=== PATIENT | female | born 1970 | race Two or more races ===

== ENCOUNTER 2023-03-21 09:07 | Emergency (ER) | payer OTHER ==
[~2023-03-21] VITALS: Ht 167.6 cm; Wt 102.5 kg
[2023-03-21] MEDS ORDERED: ELIQUIS2.5 MG PO (09:45)
== END 2023-03-21 14:30 | disposition home or self-care (01) ==
LOC: ER 09:07
DX: M79.605 Pain in left leg (principal); I80.222 Phlebitis and thrombophlebitis of left popliteal vein

== ENCOUNTER 2023-03-24 13:18 | Emergency (ER) | payer OTHER ==
[~2023-03-24] VITALS: Ht 167.6 cm; Wt 101.6 kg
[~2023-03-24 13:18] MED LIST: ELIQUIS2.5 MG PO
== END 2023-03-24 15:35 | disposition home or self-care (01) ==
LOC: ER 13:18
DX: M79.605 Pain in left leg (principal); R06.02 Shortness of breath; R07.89 Other chest pain; R11.10 Vomiting, unspecified

== ENCOUNTER 2023-06-20 11:38 | Emergency (ER) | payer OTHER ==
[~2023-06-20] VITALS: Ht 167.6 cm; Wt 99.8 kg
[2023-06-20] MEDS ORDERED: QBRELIS1 MG/1 ML (12:05)
[2023-06-20] MEDS ORDERED: TAPAZOLE5 MG (12:05)
== END 2023-06-20 14:59 | disposition home or self-care (01) ==
LOC: ER 11:38
DX: M79.604 Pain in right leg (principal); I87.2 Venous insufficiency (chronic) (peripheral); Z91.011 Allergy to milk products

== ENCOUNTER 2024-08-26 08:05 | Emergency (ER) | payer OTHER ==
[~2024-08-26] VITALS: Ht 167.6 cm; Wt 99.8 kg
[~2024-08-26 08:05] MED LIST changes: +QBRELIS1 MG/1 ML; +TAPAZOLE5 MG
[2024-08-26] MEDS ORDERED: RINGERS SOLUTION,LACTATED 1,000 ML IV STA (09:16)
[2024-08-26] MEDS ORDERED: ONDANSETRON HCL 2 MG/ML VIAL IV STA (09:17)
[2024-08-26] MEDS ORDERED: FAMOtidine 10 MG/ML (4ML VIAL) IV STA (09:18)
[2024-08-26] MEDS ORDERED: METOCLOPRAMIDE HCL 10 MG in DEXTROSE 5 % IN WATER 50 ML IV ONE (09:30)
[2024-08-26 10:07] LABS: HEMATOCRIT 39.2 % (36.0-45.00); MEAN CELL VOLUME 86.3 fL (80.00-100.00); MEAN CORPUSCULAR HEMOGLOBIN 28.7 pg (27.00-32.0); MEAN CORPUSCULAR HGB CONC 33.3 g/dl (32.0-36.0); RED BLOOD COUNT 4.54 M/uL (4.00-6.00); RED CELL DISTRIBUTION WIDTH 12.8 % (11.5-14.5)
[2024-08-26 10:08] LABS: PLATELET COUNT 126 K/uL (150-450)
[2024-08-26 10:29] LABS: ALBUMIN 3.8 gm/dL (3.4-5.0); BILIRUBIN TOTAL 0.89 mg/dL (0.3-1.2); BILIRUBIN,CONJUGATED 0.19 mg/dL (0.0-0.2); BILIRUBIN,UNCONJUGATED 0.7 mg/dL (0.0-0.6); CALCIUM 9.5 mg/dL (8.5-10.1); CREATININE SERUM 0.65 mg/dL (0.55-1.02); GFR 95.35; POTASSIUM 4.43 mEq/L (3.5-5.1); TOTAL PROTEIN 7.8 gm/dL (6.4-8.2)
[2024-08-26 11:11] LABS: PH,URINE 6.5 (5.0-8.0); URINE APPEARANCE Clear; URINE BILIRRUBIN Negative (NEGATIVE); URINE BLOOD Negative; URINE COLOR Yellow; URINE GLUCOSE Negative (NEGATIVE); URINE KETONE Trace (NEGATIVE); URINE LEUKOCYTE Negative; URINE NITRATE Negative; URINE PROTEIN Negative (NEGATIVE)
[2024-08-26 11:14] LABS: URINE BACTERIA 42.8 uL (0.0-1933); URINE EPITHELIAL CELLS 4.7 uL (0.0-38.8); URINE RBC 3.3 uL (0.0-20.8); URINE WBC 4.1 uL (0.0-23.2)
== END 2024-08-26 11:59 | disposition home or self-care (01) ==
LOC: ER 08:06
PROVIDERS: General Practice
DX: A90 Dengue fever [classical dengue] (principal); R11.10 Vomiting, unspecified; E03.8 Other specified hypothyroidism; Z88.8 Allergy status to other drugs, medicaments and biological substances; Z91.011 Allergy to milk products